=== PATIENT | male | born 1955 | race African-American/Black ===

== ENCOUNTER 2019-10-28 12:04 | Inpatient (IN) | payer BC, OTHER ==
--- NOTE | 2019-10-28 13:41 | BHS.RME ---
Substance Use & Tx History - Substance Use History Alcohol Substance amount: 4 nips Frequency of use: Daily Substance route: Oral Cannabis Frequency of use: Less than 3 times per week Substance route: Inhalation (ex: sniffing or snorting) - Last Treatment Date of last treatment: 10/28/2019 Where was last treatment: ER Physical/Psych/Mental Status - Behavior Eye Contact: Normal - Cooperativeness Cooperativeness: Cooperative - Thinking Thought Processes: Logical Thought content: Future oriented - Physical Health Problems Is patient presently having any pain?: Yes (r elbow s/p fall months ago ) Does patient presently have any injuries (include location): No Does patient currently have a fever: No CIWA Nausea/Vomitin Muscle Tremors: 5 Anxiety: 0-No Anxiety, at Ease Agitation: 1-Slight > Activity Paroxysmal Sweats: 2 Orientation: 0-Oriented Tacttile Disturbances: 1-Very Mild Itch/Numbness Auditory Disturbances: 2-Mild Harshness/Frighten Visual Disturbances: 2-Mild Sensitivity Headache: 0-None Present CIWA-Ar Total Score: 16
--- NOTE | 2019-10-28 13:47 | HP ---
CIWA Score Nausea/Vomitin Muscle Tremors: 4-Moderate,w/Arms Extend Anxiety: 0-No Anxiety, at Ease Agitation: 1-Slight > Activity Paroxysmal Sweats: 2 Orientation: 0-Oriented Tacttile Disturbances: 1-Very Mild Itch/Numbness Auditory Disturbances: 2-Mild Harshness/Frighten Visual Disturbances: 2-Mild Sensitivity Headache: 0-None Present CIWA-Ar Total Score: 15 - Admission Criteria OASAS Guidelines: Admission for Medically Managed Detox: Requires at least one of the followin. CIWA greater than 12 2. Seizures within the past 24 hours 3. Delirium tremens within the past 24 hours 4. Hallucinations within the past 24 hours 5. Acute intervention needed for co occurring medical disorder 6. Acute intervention needed for co occurring psychiatric disorder 7. Severe withdrawal that cannot be handled at a lower level of care (continued vomiting, continued diarrhea, abnormal vital signs) requiring intravenous medication and/or fluids 8. Admission ROS BHS - HPI Allergies/Adverse Reactions: Allergies Allergy/AdvReac Type Severity Reaction Status Date / Time No Known Allergies Allergy Verified 10/28/19 14:15 History of Present Illness: 63 y.o. male requesting detox from alcohol, s/p ER @ [facility] per pt dx w/ left kidney cyst has f/up US renal 11/14/2019 . ETOH 4 nips/day , reports tremors if not drinking , occasional blackouts, denies seizures , reports injuries to self , fall while intoxicated most recently several months ago fell and hit his right elbow , was supposed to start PT , closed due to COVID -19 . cannabis -occasional use tobacco - 1 ppd , requesting nrt w/ patch pmhx : htn NON- COMPLIANT W/ MEDS NORVASC 10 MG , CHRONIC BACK PAIN , FOOT PAIN HAS REGULAR PODIATRY APPT . PSYCH : DENIES PSHX : HEAD - CYST 2007 , FEET Exam Limitations: Clinical Condition - Review of Systems Constitutional: See HPI, Loss of Appetite EENT: reports: No Symptoms Reported Respiratory: reports: No Symptoms reported Cardiac: reports: No Symptoms Reported GI: reports: See HPI : reports: No Symptoms Reported Musculoskeletal: reports: See HPI, Back Pain, Joint Pain Integumentary: reports: No Symptoms Reported Neuro: reports: See HPI, Tremors Endocrine: reports: No Symptoms Reported Hematology: reports: No Symptoms Reported Psychiatric: reports: Orientated x3, Agitated, Anxious Patient History - Smoking Cessation Smoking history: Current every day smoker Have you smoked in the past 12 months: Yes Aproximately how many cigarettes per day: 20 Hx Chewing Tobacco Use: No Initiated information on smoking cessation: Yes 'Breaking Loose' booklet given: 10/28/19 - Substances abused Alcohol Substance route: Oral Frequency: Daily Amount used: 6 nips of vodka Age of first use: 16 Date of last use: 10/27/19 Admission Physical Exam S - Physical General Appearance: Yes: Mild Distress, Moderate Distress, Tremorous, Irritable, Anxious HEENTM: Yes: EOMI, Hearing grossly Normal, Normocephalic, Normal Voice Respiratory: Yes: Chest Non-Tender, Lungs Clear, Normal Breath Sounds, No Respiratory Distress, No Accessory Muscle Use Neck: Yes: No masses,lesions,Nodules, Trachea in good position Cardiology: Yes: Regular Rhythm, Regular Rate, S1, S2, Tachycardia Abdominal: Yes: Non Tender, Soft Musculoskeletal: Yes: Gait Steady Extremities: Yes: Normal Range of Motion, Non-Tender, Tremors, Swelling (RIGHT ELBOW EDEMA , TENDER TO PALPATION OLECRANON, NO DEFORMITIES PER PT NO FRX , WAS SENT TO PT.) Neurological: Yes: Fully Oriented, Alert, Motor Strength 5/5, Normal Mood/Affect Integumentary: Yes: Warm - Diagnostic (1) Alcohol dependence Current Visit: Yes Status: Acute Qualifiers: Substance use status: in withdrawal (2) Cannabis use disorder, mild, abuse Current Visit: Yes Status: Chronic (3) Nicotine dependence Current Visit: Yes Status: Chronic Qualifiers: Nicotine product type: cigarettes Inpatient Rehab Admission - Rehab Decision to Admit Inpatient rehab admission?: No
[2019-10-28] MEDS ORDERED: IBUPROFEN 400 MG TABLET (FP) PO PRN (14:16)
[2019-10-28] MEDS ORDERED: ACETAMINOPHEN 325 MG TABLET (FP) PO PRN ×2 (14:16)
[2019-10-28] MEDS ORDERED: MAGNESIUM HYDROX 2400MG/30ML ORAL SUSPENSION 30 ML CUP PO PRN (14:16)
[2019-10-28] MEDS ORDERED: MAG HYDROX/AL HYDROX/SIMETH 30 ML UNIT-DOSE CUP PO PRN (14:16)
[2019-10-28] MEDS ORDERED: BISMUTH SUBSALICYLATE 262 MG/15 ML BTL PO PRN (14:16)
[2019-10-28] MEDS ORDERED: MENTHOL/PHENOL 1 EACH UD MM PRN (14:16)
[2019-10-28] MEDS ORDERED: ONDANSETRON *ODT* 4 MG TABLET SL PRN (14:16)
[2019-10-28] MEDS ORDERED: METHOCARBAMOL 500 MG TABLET PO PRN (14:16)
[2019-10-28] MEDS ORDERED: MAGNESIUM CITRATE 300 ML BOTTLE PO PRN (14:16)
[2019-10-28 14:22] VITALS: BMI 22.0
[2019-10-28] MEDS ORDERED: chlordiazePOXIDE HCL 25 MG CAPSULE PO PRN (14:31)
[2019-10-28] MEDS ORDERED: chlordiazePOXIDE HCL 25 MG CAPSULE PO ONE (14:31)
[2019-10-28] MEDS: hydrOXYzine PAMOATE 25 MG CAPSULE (FP) PO PRN ×2 (15:05→22:16)
[2019-10-28] MEDS: amLODIPine BESYLATE 10 MG TABLET (FP) PO SCH (15:05)
[2019-10-28] MEDS: NICOTINE 7 MG/24 HOURS TOPICAL PATCH TD SCH (15:10)
[2019-10-28] MEDS: chlordiazePOXIDE HCL 25 MG CAPSULE PO SCH ×2 (18:06→22:16)
[2019-10-28] MEDS: THIAMINE HCL 100 MG TABLET (FP) PO SCH (22:16)
[2019-10-28] MEDS: MELATONIN 5 MG TABLETS PO PRN (22:17)
[2019-10-29] MEDS: chlordiazePOXIDE HCL 25 MG CAPSULE PO SCH ×4 (06:50→22:15)
--- NOTE | 2019-10-29 09:45 | PN ---
[facility] CIWA - CIWA Score Nausea/Vomitin-No Nausea/No Vomiting Muscle Tremors: 2 Anxiety: 3 Agitation: 0-Normal Activity Paroxysmal Sweats: 3 Orientation: 0-Oriented Tacttile Disturbances: 1-Very Mild Itch/Numbness Auditory Disturbances: 0-None Visual Disturbances: 0-None Headache: 2-Mild CIWA-Ar Total Score: 11 S Progress Note (SOAP) Subjective: c/o sweats, anxiety, shakes, and headache. Objective: 10/29/19 09:44 Vital Signs 10/29/19 10/29/19 06:08 08:40 Temperature 97.0 F L 97.3 F L Pulse Rate 79 77 Respiratory 18 18 Rate Blood Pressure 163/109 H 137/88 Laboratory Last Values WBC 3.9 K/mm3 (4.0-10.0) L 10/29/19 07:30 RBC 4.13 M/mm3 (4.00-5.60) 10/29/19 07:30 Hgb 13.5 GM/dL (11.7-16.9) 10/29/19 07:30 Hct 40.6 % (35.4-49) 10/29/19 07:30 MCV 98.4 fl (80-96) H 10/29/19 07:30 MCH 32.7 pg (25.7-33.7) 10/29/19 07:30 MCHC 33.2 g/dl (32.0-35.9) 10/29/19 07:30 RDW 16.1 % (11.9-15.9) H 10/29/19 07:30 Plt Count 300 K/MM3 (134-434) 10/29/19 07:30 MPV 8.5 fl (7.5-11.1) 10/29/19 07:30 Sodium 137 mmol/L (136-145) 10/29/19 07:30 Potassium 3.6 mmol/L (3.5-5.1) 10/29/19 07:30 Chloride 104 mmol/L (98-107) 10/29/19 07:30 Carbon Dioxide 30 mmol/L (21-32) 10/29/19 07:30 Anion Gap 3 MMOL/L (8-16) L 10/29/19 07:30 BUN 12.4 mg/dL (7-18) 10/29/19 07:30 Creatinine 1.1 mg/dL (0.55-1.3) 10/29/19 07:30 Est GFR (CKD-EPI)AfAm 83.53 10/29/19 07:30 Est GFR (CKD-EPI)NonAf 72.07 10/29/19 07:30 Random Glucose 89 mg/dL (74-106) 10/29/19 07:30 Calcium 9.3 mg/dL (8.5-10.1) 10/29/19 07:30 Total Bilirubin 1.2 mg/dL (0.2-1) H 10/29/19 07:30 AST 33 U/L (15-37) 10/29/19 07:30 ALT 67 U/L (13-61) H 10/29/19 07:30 Alkaline Phosphatase 68 U/L (45-117) 10/29/19 07:30 Total Protein 6.6 g/dl (6.4-8.2) 10/29/19 07:30 Albumin 3.6 g/dl (3.4-5.0) 10/29/19 07:30 Syphilis Serology Non-reactive (NONREACTIVE) 10/29/19 07:30 Labs noted. Assessment: 10/29/19 09:45 AOX3, in no acute respiratory distress. Full ROM, ambulating in the unit. Withdrawal symptoms. Covid-19 test result pending. 10/29/19 13:28 Plan: continue detox.
[2019-10-29 10:06] LABS: HEMATOCRIT 40.6 % (35.4-49); HEMOGLOBIN 13.5 GM/dL (11.7-16.9); MCH 32.7 pg (25.7-33.7); MCHC 33.2 g/dl (32.0-35.9); MEAN CELL VOLUME 98.4 fl (80-96); MEAN PLT VOLUME 8.5 fl (7.5-11.1); PLATELET COUNT 300 K/MM3 (134-434); RBC 4.13 M/mm3 (4.00-5.60); RDW 16.1 % (11.9-15.9); WHITE BLOOD COUNT 3.9 K/mm3 (4.0-10.0)
[2019-10-29 10:13] LABS: ALBUMIN 3.6 g/dl (3.4-5.0); BILIRUBIN,TOTAL 1.2 mg/dL (0.2-1); BLOOD UREA NITROGEN 12.4 mg/dL (7-18); CALCIUM 9.3 mg/dL (8.5-10.1); CREATININE 1.1 mg/dL (0.55-1.3); POTASSIUM 3.6 mmol/L (3.5-5.1); TOT PROT 6.6 g/dl (6.4-8.2)
[2019-10-29] MEDS: NICOTINE 7 MG/24 HOURS TOPICAL PATCH TD SCH (10:31)
[2019-10-29] MEDS: amLODIPine BESYLATE 10 MG TABLET (FP) PO SCH (10:32)
[2019-10-29] MEDS: PRENATAL VITAMINS W/ FOLIC ACID TABLET (FP) PO SCH (10:32)
[2019-10-29] MEDS: MELATONIN 5 MG TABLETS PO PRN (22:15)
[2019-10-29] MEDS: THIAMINE HCL 100 MG TABLET (FP) PO SCH (22:15)
[2019-10-29] MEDS: hydrOXYzine PAMOATE 25 MG CAPSULE (FP) PO PRN (22:15)
[2019-10-30] MEDS: chlordiazePOXIDE HCL 25 MG CAPSULE PO SCH ×2 (06:58→10:30)
[2019-10-30] MEDS: NICOTINE 7 MG/24 HOURS TOPICAL PATCH TD SCH (10:30)
[2019-10-30] MEDS: PRENATAL VITAMINS W/ FOLIC ACID TABLET (FP) PO SCH (10:30)
[2019-10-30] MEDS: amLODIPine BESYLATE 10 MG TABLET (FP) PO SCH (10:30)
--- NOTE | 2019-10-30 14:01 | PN ---
S CIWA - CIWA Score Nausea/Vomitin-Mild Nausea/No Vomiting Muscle Tremors: 2 Anxiety: 2 Agitation: 1-Slight > Activity Paroxysmal Sweats: 1-Minimal Palms Moist Orientation: 0-Oriented Tacttile Disturbances: 0-None Auditory Disturbances: 0-None Visual Disturbances: 2-Mild Sensitivity Headache: 0-None Present CIWA-Ar Total Score: 9 BHS Progress Note (SOAP) Subjective: 63 years old male admitted on 10/28/19 for alcohol withdrawal sx management treating with librium detox regiment reports that the medication makes him sleepy adjusts librium dosage to meet the need of the patient Objective: 10/30/19 14:09 Vital Signs - 24 hr 10/29/19 10/29/19 10/30/19 16:48 20:45 00:30 Temperature 97.3 F L 97.1 F L Pulse Rate 90 78 Respiratory 18 18 18 Rate Blood Pressure 136/81 131/84 O2 Sat by Pulse 96 Oximetry (%) 10/30/19 10/30/19 10/30/19 03:30 06:20 08:32 Temperature 97.5 F L 97.3 F L Pulse Rate 76 88 Respiratory 18 18 18 Rate Blood Pressure 141/98 127/85 O2 Sat by Pulse Oximetry (%) 10/30/19 13:15 Temperature 97.3 F L Pulse Rate 93 H Respiratory 18 Rate Blood Pressure 121/83 O2 Sat by Pulse 98 Oximetry (%) Laboratory Tests 10/29/19 10/29/19 10/29/19 07:30 07:30 07:30 WBC 3.9 L RBC 4.13 Hgb 13.5 Hct 40.6 MCV 98.4 H MCH 32.7 MCHC 33.2 RDW 16.1 H Plt Count 300 MPV 8.5 Sodium 137 Potassium 3.6 Chloride 104 Carbon Dioxide 30 Anion Gap 3 L BUN 12.4 Creatinine 1.1 Est GFR (CKD-EPI)AfAm 83.53 Est GFR (CKD-EPI)NonAf 72.07 Random Glucose 89 Calcium 9.3 Total Bilirubin 1.2 H AST 33 ALT 67 H Alkaline Phosphatase 68 Total Protein 6.6 Albumin 3.6 Syphilis Serology Non-reactive labn oted Assessment: 10/30/19 14:10 alcohol withdrawal Plan: librium regiment
[2019-10-30] MEDS ORDERED: chlordiazePOXIDE HCL 25 MG CAPSULE PO SCH (17:00)
[2019-10-30] MEDS: chlordiazePOXIDE HCL 10 MG CAPSULE PO SCH ×2 (17:36→22:13)
[2019-10-30] MEDS: THIAMINE HCL 100 MG TABLET (FP) PO SCH (22:12)
[2019-10-30] MEDS: MELATONIN 5 MG TABLETS PO PRN (22:12)
[2019-10-31] MEDS ORDERED: chlordiazePOXIDE HCL 10 MG CAPSULE PO PRN
[2019-10-31] MEDS ORDERED: chlordiazePOXIDE HCL 10 MG CAPSULE PO SCH ×2 (05:00)
--- NOTE | 2019-10-31 08:54 | PN ---
[facility] CIWA - CIWA Score Nausea/Vomitin-No Nausea/No Vomiting Muscle Tremors: None Anxiety: 1-Mildly Anxious ("anxious to go home") Agitation: 0-Normal Activity Paroxysmal Sweats: No Perspiration Orientation: 0-Oriented Tacttile Disturbances: 0-None Auditory Disturbances: 0-None Visual Disturbances: 0-None Headache: 0-None Present CIWA-Ar Total Score: 1 BHS Progress Note (SOAP) Subjective: pt reports decreased withdrawal sx. Wants to d/c today. States " i'm just anxious to get home today and that's it". Librium 5 mg today but pt declined it. Objective: 10/31/19 11:55 Vital Signs - 24 hr 10/30/19 10/30/19 10/30/19 13:15 16:39 20:33 Temperature 97.3 F L 98.0 F 97.5 F L Pulse Rate 93 H 89 88 Respiratory 18 18 16 Rate Blood Pressure 121/83 131/81 127/83 O2 Sat by Pulse 98 95 Oximetry (%) 10/31/19 10/31/19 10/31/19 00:30 03:30 06:31 Temperature 97.4 F L Pulse Rate 63 Respiratory 20 18 18 Rate Blood Pressure 133/81 O2 Sat by Pulse 97 Oximetry (%) 10/31/19 09:00 Temperature 97.9 F Pulse Rate 88 Respiratory 18 Rate Blood Pressure 123/85 O2 Sat by Pulse 95 Oximetry (%) Laboratory Tests 10/28/19 10/29/19 10/29/19 Unknown 07:30 07:30 WBC 3.9 L RBC 4.13 Hgb 13.5 Hct 40.6 MCV 98.4 H MCH 32.7 MCHC 33.2 RDW 16.1 H Plt Count 300 MPV 8.5 Sodium Potassium Chloride Carbon Dioxide Anion Gap BUN Creatinine Est GFR (CKD-EPI)AfAm Est GFR (CKD-EPI)NonAf Random Glucose Calcium Total Bilirubin AST ALT Alkaline Phosphatase Total Protein Albumin Syphilis Serology Non-reactive COVID-19 (SINDI) Not detected 10/29/19 07:30 WBC RBC Hgb Hct MCV MCH MCHC RDW Plt Count MPV Sodium 137 Potassium 3.6 Chloride 104 Carbon Dioxide 30 Anion Gap 3 L BUN 12.4 Creatinine 1.1 Est GFR (CKD-EPI)AfAm 83.53 Est GFR (CKD-EPI)NonAf 72.07 Random Glucose 89 Calcium 9.3 Total Bilirubin 1.2 H AST 33 ALT 67 H Alkaline Phosphatase 68 Total Protein 6.6 Albumin 3.6 Syphilis Serology COVID-19 (SINDI) Assessment: 10/31/19 11:56 medically stable Plan: may discharge pt today to aftercare referral @ [facility] on [address] [place], [place]. Pt reports he has a PCP at [facility] on [address] [place], [place]. pt states he has own meds at home. D/C pt today
--- NOTE | 2019-10-31 09:03 | DS ---
[facility] Detox Discharge Summary Admission Date: 10/28/19 Discharge Date: 10/31/19 - History Present History: Alcohol Dependence, Cannabis Dependence Pertinent Past History: Hypertension - Physical Exam Results Vital Signs: Vital Signs Temperature 97.4 F L 10/31/19 06:31 Pulse Rate 63 10/31/19 06:31 Respiratory Rate 18 10/31/19 06:31 Blood Pressure 133/81 10/31/19 06:31 O2 Sat by Pulse Oximetry (%) 97 10/31/19 06:31 Alert o x 3 nad oob ambulating with steady gait cardiac;s1 s2,rrr lungs:ctab abdomen:soft,+bs,nt,nd extremities:no edema,skin intact. Pertinent Admission Physical Exam Findings: Laboratory Tests 10/28/19 10/29/19 10/29/19 Unknown 07:30 07:30 WBC 3.9 L RBC 4.13 Hgb 13.5 Hct 40.6 MCV 98.4 H MCH 32.7 MCHC 33.2 RDW 16.1 H Plt Count 300 MPV 8.5 Sodium Potassium Chloride Carbon Dioxide Anion Gap BUN Creatinine Est GFR (CKD-EPI)AfAm Est GFR (CKD-EPI)NonAf Random Glucose Calcium Total Bilirubin AST ALT Alkaline Phosphatase Total Protein Albumin Syphilis Serology Non-reactive COVID-19 (SINDI) Not detected 10/29/19 07:30 WBC RBC Hgb Hct MCV MCH MCHC RDW Plt Count MPV Sodium 137 Potassium 3.6 Chloride 104 Carbon Dioxide 30 Anion Gap 3 L BUN 12.4 Creatinine 1.1 Est GFR (CKD-EPI)AfAm 83.53 Est GFR (CKD-EPI)NonAf 72.07 Random Glucose 89 Calcium 9.3 Total Bilirubin 1.2 H AST 33 ALT 67 H Alkaline Phosphatase 68 Total Protein 6.6 Albumin 3.6 Syphilis Serology COVID-19 (SINDI) w/s - Treatment Hospital Course: Detox Protocol Followed, Detoxed Safely, Responded well, Discharged Condition Good, Rehab Referral Accepted Patient has Accepted a Rehab Referral to: [facility] OPD - Medication Discharge Medications: Ambulatory Orders Amlodipine Besylate [Norvasc -] 10 mg PO DAILY 10/28/19 - Diagnosis (1) Hypertension Status: Chronic Qualifiers: Hypertension type: essential hypertension Qualified Code(s): I10 - Essential (primary) hypertension (2) Alcohol dependence Status: Acute Qualifiers: Substance use status: in withdrawal (3) Cannabis use disorder, mild, abuse Status: Acute (4) Nicotine dependence Status: Acute Qualifiers: Nicotine product type: cigarettes Substance use status: in withdrawal Qualified Code(s): F17.213 - Nicotine dependence, cigarettes, with withdrawal - AMA Did Patient Leave Against Medical Advice: No
[2019-10-31] MEDS: amLODIPine BESYLATE 10 MG TABLET (FP) PO SCH (09:48)
[2019-10-31] MEDS: PRENATAL VITAMINS W/ FOLIC ACID TABLET (FP) PO SCH (09:49)
[2019-10-31 10:20] VITALS: BP 123/85; PULSE 88; TEMP 97.9
[2019-11-01] MEDS ORDERED: chlordiazePOXIDE HCL 10 MG CAPSULE PO SCH ×2 (05:00)
[2019-11-02] MEDS ORDERED: chlordiazePOXIDE HCL 10 MG CAPSULE PO ONE ×2 (05:00)
== END 2019-10-31 10:05 | disposition home or self-care (01) | DRG 897 ==
LOC: YASAS 12:04 → Y5N DETOX 14:15
PROVIDERS: ADMIT Allergy & Immunology; ATTEND Allergy & Immunology
PROC: HZ2ZZZZ Detoxification Services for Substance Abuse Treatment (ICD-10-PCS; principal; 2019-10-28)
DX: F10.230 Alcohol dependence with withdrawal, uncomplicated (principal); F12.10 Cannabis abuse, uncomplicated; F17.213 Nicotine dependence, cigarettes, with withdrawal; I10 Essential (primary) hypertension; M54.89 Other dorsalgia; G89.29 Other chronic pain; M25.521 Pain in right elbow; M25.421 Effusion, right elbow; W19.XXXA Unspecified fall, initial encounter; Y93.89 Activity, other specified; Y92.89 Other specified places as the place of occurrence of the external cause; Y99.8 Other external cause status
CPT/HCPCS: 36415; 80053; 85027; 86780; U0003

== ENCOUNTER 2020-01-28 20:50 | Inpatient (IN) | payer BC, OTHER ==
--- OUTSIDE RECORDS SUMMARY | 2020-01-28 20:54 | XMS ---
:1955 Author Organization [facility] Support Name Relationship Address Phone UE Unavailable Unavailable Unavailable NOLVIA MACKAY [address] [place] [address] Nolvia Paulson Unavailable [address] [place] [address] Re-disclosure Warning The records that you are about to access may contain information from federally- assisted alcohol or drug abuse programs. If such information is present, then the following federally mandated warning applies: This information has been disclosed to you from records protected by federal confidentiality rules (42 CFR part 2). The federal rules prohibit you from making any further disclosure of this information unless further disclosure is expressly permitted by the written consent of the person to whom it pertains or as otherwise permitted by 42 CFR part 2. A general authorization for the release of medical or other information is NOT sufficient for this purpose. The Federal rules restrict any use of the information to criminally investigate or prosecute any alcohol or drug abuse patient.The records that you are about to access may contain highly sensitive health information, the redisclosure of which is protected by Article 27-F of the [facility] Public Health law. If you continue you may haveaccess to information: Regarding HIV / AIDS; Provided by facilities licensed or operated by the [facility] Office of Mental Health; or Provided by the [facility] Office for People With Developmental Disabilities. If such information is present, then the following [facility] mandated warning applies: This information has been disclosed to you from confidential records which are protected by state law. State law prohibits you from making any further disclosure of this information without the specific written consent of the person to whom it pertains, or as otherwise permitted by law. Any unauthorized further disclosure in violation of state law may result in a fine or snf sentence or both. A general authorization for the release of medical or other information is NOT sufficient authorization for further disclosure. Insurance Providers Payer name Policy type Policy ID Covered Covered alliance party's Policy P danial / Coverage alliance party ID relationship to [employer] Inf ormation type balderrama [employer] MEDICARE [id number] SP [id number] BLUE CROSS [id number] SP [id number] SENIOR PLAN 45 MEDICAID [id number] SP [id number] BLUE CROSS [id number] SP [id number] SENIOR PLAN 9 Results ID Date Data Source [id number] 10/28/2019 12:00:00 AM EDT [facility] Name Value Range Interpretation Description Data Sup porting Code Source(s) Document(s ) SARS [facility] CORONAVIRUS 2 RNA This lab was ordered by Teachey Lisa Fuentes ct Bill Inter and reported by [facility]. Procedure
[2020-01-28 22:14] VITALS: BMI 25.7
--- NOTE | 2020-01-28 22:17 | HP ---
CIWA Score Nausea/Vomitin-Mild Nausea/No Vomiting Muscle Tremors: 5 Anxiety: 4-Mod. Anxious/Guarded Agitation: 4-Moderately Restless Paroxysmal Sweats: 3 Orientation: 0-Oriented Tacttile Disturbances: 0-None Auditory Disturbances: 0-None Visual Disturbances: 0-None Headache: 0-None Present CIWA-Ar Total Score: 17 - Admission Criteria OASAS Guidelines: Admission for Medically Managed Detox: Requires at least one of the followin. CIWA greater than 12 2. Seizures within the past 24 hours 3. Delirium tremens within the past 24 hours 4. Hallucinations within the past 24 hours 5. Acute intervention needed for co occurring medical disorder 6. Acute intervention needed for co occurring psychiatric disorder 7. Severe withdrawal that cannot be handled at a lower level of care (continued vomiting, continued diarrhea, abnormal vital signs) requiring intravenous medication and/or fluids 8. Patient presents the following: CIWA greater than 12 Admission Criteria Met: Admission criteria met Admitting History and Physical - Smoking History Smoking history: Current every day smoker Have you smoked in the past 12 months: Yes Aproximately how many cigarettes per day: 20 Admission ROS [facility] Chief Complaint: c/o withdrawal sx's Allergies/Adverse Reactions: Allergies Allergy/AdvReac Type Severity Reaction Status Date / Time No Known Allergies Allergy Verified 10/28/19 14:15 History of Present Illness: HERE FOR ALCOHOL DETOX. SELF REFERRED. CLIENT IS KNOWN TO PROGRAM. LAST HERE 10/2019 SIGNED OUT AMA HE WAS NOT READY. HE REPORTS HE HAS BEEN DRINKING ALCOHOL DAILY SINCE. 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 DENIES SEIZURE D/O. HE ALSO ABUSES CANNABIS. DENIES ANY SOBRIETY IN THE PAST 12 MONTHS. LIVES WITH FAMILY, UNEMPLOYED, DENIES LEGALS Exam Limitations: Physical Impairment (AMBULATES W/ CANE) - Ebola screening Have you traveled outside of the country in the last 21 days: No Have you had contact with anyone from an Ebola affected area: No Have you been sick,other than usual withdrawal symptoms: No Do you have a fever: No - Review of Systems Constitutional: Chills, Loss of Appetite, Night Sweats, Changes in sleep, Unintentional Wgt. Loss EENT: reports: Dental Problems (MISSING TEETH), Other (WATERY EYES) Respiratory: reports: No Symptoms reported Cardiac: reports: No Symptoms Reported GI: reports: Nausea, Poor Appetite, Poor Fluid Intake : reports: No Symptoms Reported Musculoskeletal: reports: Back Pain (CHRONIC), Joint Pain (R KNEE), Other (AMBULATES W/ CANE HX/O FALLS) Integumentary: reports: No Symptoms Reported Neuro: reports: No Symptoms reported Endocrine: reports: No Symptoms Reported Hematology: reports: Other (RECTAL BLEEDING) Psychiatric: reports: Orientated x3, Anxious, Depressed (DENIES SI/HI/AVH) Other Systems: Reviewed and Negative Patient History - Patient Medical History Hx Anemia: No Hx Asthma: No Hx Chronic Obstructive Pulmonary Disease (COPD): No Hx Cancer: No Hx Cardiac Disorders: No Hx Hypertension: Yes Hx Hypercholesterolemia: No Hx Pacemaker: No HX Cerebrovascular Accident: No Hx Seizures: No Hx Dementia: No Hx Diabetes: No Hx Gastrointestinal Disorders: Yes (RECTAL BLEEDING) Hx Genitourinary Disorders: No Hx Sexually Transmitted Disorders: No Hx Renal Disease (ESRD): No Hx Thyroid Disease: No Hx Human Immunodeficiency Virus (HIV): No Hx Hepatitis C: No Hx Depression: No Hx Suicide Attempt: No Hx Bipolar Disorder: No Hx Schizophrenia: No Other Medical History: DENIES - Patient Surgical History Past Surgical History: No Hx Neurologic Surgery: No Hx Cataract Extraction: No Hx Cardiac Surgery: No Hx Lung Surgery: No Hx Breast Surgery: No Hx Orthopedic Surgery: Yes (hip sx. 2007) Anesthesia Reaction: No - PPD History Previous Implant?: Yes Documented Results: Positive w/o proof Implanted On [facility] Admission?: No PPD to be Administered?: No - Smoking Cessation Smoking history: Current every day smoker Have you smoked in the past 12 months: Yes Aproximately how many cigarettes per day: 20 Cigars Per Day: 0 Hx Chewing Tobacco Use: No Initiated information on smoking cessation: Yes 'Breaking Loose' booklet given: 01/28/20 - Substance & Tx. History Hx Alcohol Use: Yes Hx Substance Use: Yes Substance Use Type: Alcohol, Marijuana Hx Substance Use Treatment: Yes ([facility]) - Substances abused Alcohol Other (specify): VODKA Substance route: Oral Frequency: Daily Amount used: 1 QUART Age of first use: 17 Date of last use: 01/28/20 Marijuana/Hashish Substance route: Smoking Frequency: 1-3 times last 30 days Amount used: 2 DRAGS Age of first use: 17 Date of last use: 01/27/20 Admission Physical Exam [facility] - Physical General Appearance: Yes: Moderate Distress, Tremorous, Sweating, Anxious HEENTM: Yes: EOMI, Normocephalic, Normal Voice, STEPH, Pharynx Normal, Other (POOR DENTITION) Respiratory: Yes: Chest Non-Tender, Lungs Clear, Normal Breath Sounds, No Respiratory Distress, No Accessory Muscle Use Neck: Yes: No masses,lesions,Nodules, Supple, Trachea in good position Breast: Yes: Breasts Symetrical Cardiology: Yes: Regular Rhythm, S1, S2, Tachycardia Abdominal: Yes: Normal Bowel Sounds, Non Tender, Soft Genitourinary: Yes: Within Normal Limits Back: Yes: Normal Inspection Musculoskeletal: Yes: full range of Motion, Gait Steady Extremities: Yes: Normal Capillary Refill, Normal Range of Motion, Non-Tender, Tremors Neurological: Yes: Fully Oriented, Alert, Motor Strength 5/5, Depressed Affect Integumentary: Yes: Cold, Clammy Lymphatic: Yes: Within Normal Limits - Diagnostic (1) Alcohol dependence with withdrawal, uncomplicated Current Visit: Yes Status: Acute (2) Cannabis use disorder, mild, abuse Current Visit: Yes Status: Acute (3) Nicotine dependence Current Visit: Yes Status: Chronic Qualifiers: Nicotine product type: cigarettes Substance use status: in withdrawal Qualified Code(s): F17.213 - Nicotine dependence, cigarettes, with withdrawal (4) Hypertension Current Visit: Yes Status: Chronic Qualifiers: Hypertension type: essential hypertension Qualified Code(s): I10 - Essential (primary) hypertension (5) Ambulates with cane Current Visit: Yes Status: Chronic (6) Risk for falls Current Visit: Yes Status: Chronic Cleared for Admission [facility] - Detox or Rehab [facility] Level of Care: Medically Managed Detox Regimen/Protocol: Ativan Claeared for Rehab Admission: No Breathalyzer - Breathalyzer Breathalyzer: 0 Urine Drug Screen - Test Device Lot number: [id number] Expiration date: 12/25/20 - Control Is test valid?: Yes - Results Drug screen NEGATIVE: No Urine drug screen results: THC-Marijuana Inpatient Rehab Admission - Rehab Decision to Admit Inpatient rehab admission?: No
[2020-01-28] MEDS ORDERED: MAG HYDROX/AL HYDROX/SIMETH 30 ML UNIT-DOSE CUP PO PRN (22:27)
[2020-01-28] MEDS ORDERED: BISMUTH SUBSALICYLATE 524 MG/30 ML UD PO PRN (22:27)
[2020-01-28] MEDS ORDERED: MAGNESIUM CITRATE 300 ML BOTTLE PO PRN (22:27)
[2020-01-28] MEDS ORDERED: guaiFENesin 200 MG/10 ML 10 ML UNIT-DOSE CUPS PO PRN (22:27)
[2020-01-28] MEDS ORDERED: MAGNESIUM HYDROX 2400MG/30ML ORAL SUSPENSION 30 ML CUP PO PRN (22:27)
[2020-01-28] MEDS ORDERED: P-EPHED 60MG/TRIPROLIDI 2.5MG TABLET PO PRN (22:27)
[2020-01-28] MEDS ORDERED: ACETAMINOPHEN 325 MG TABLET (FP) PO PRN ×2 (22:27)
[2020-01-28] MEDS ORDERED: ONDANSETRON *ODT* 4 MG TABLET SL PRN (22:27)
[2020-01-28] MEDS ORDERED: DICYCLOMINE HCL 10 MG CAPSULE PO PRN (22:27)
[2020-01-28] MEDS ORDERED: METHOCARBAMOL 500 MG TABLET PO PRN (22:27)
[2020-01-28] MEDS ORDERED: LORazepam 1 MG TABLET PO PRN (22:27)
[2020-01-28] MEDS ORDERED: IBUPROFEN 400 MG TABLET (FP) PO PRN (22:27)
[2020-01-28] MEDS ORDERED: NICOTINE POLACRILEX 2 MG GUM BUC PRN (22:27)
[2020-01-28] MEDS ORDERED: MENTHOL/PHENOL 1 EACH UD MM PRN (22:27)
--- OUTSIDE RECORDS SUMMARY | 2020-01-28 23:24 | XMS ---
:1955 Author Organization [facility] Support Name Relationship Address Phone UE Unavailable Unavailable Unavailable NOLVIA MACKAY [address] [place] [address] Nolvia Paulson Unavailable [address] [place] [address] Re-disclosure Warning The records that you are [...] is protected by Article 27-F of the [facility] Public Health law. If you continue you may haveaccess to information: Regarding HIV / AIDS; Provided by facilities licensed or operated by the [facility] Office of Mental Health; or Provided by the [facility] Office for People With Developmental Disabilities. If such information is present, then the following [facility] mandated warning applies: This information [...] law may result in a fine or shelter sentence or both. A general authorization for the release of medical or other information is NOT sufficient authorization for further disclosure. Insurance Providers Payer name Policy type Policy ID Covered Covered democrat's Policy P danial / Coverage democrat ID relationship to Balderrama Inf ormation type balderrama MAR[employer] MEDICARE [id number] SP [id number] BLUE CROSS [id number] SP [id number] SENIOR PLAN 45 MEDICAID [id number] SP [id number] BLUE CROSS [id number] SP [id number] SENIOR PLAN 9 Results ID Date Data Source [id number] 10/28/2019 12:00:00 AM EDT [facility] Name Value Range Interpretation Description Data Sup porting Code Source(s) Document(s ) SARS [facility] CORONAVIRUS 2 RNA This lab was ordered by [place] Lisa Fuentes ct [facility] and reported by [facility]. Procedure
[2020-01-29] MEDS: LORazepam 2 MG TABLET PO SCH ×5 (00:56→22:33)
[2020-01-29] MEDS ORDERED: cloNIDine HCL 0.1 MG TABLET PO ONE ×2 (07:18→21:06)
--- NOTE | 2020-01-29 07:20 | PN ---
[facility] Progress Note Note: CLONIDINE 0.1 MG PO X 1 DOSE Vital Signs 01/29/20 01/29/20 01/29/20 00:10 02:44 06:18 Temperature 97.1 F L 97.3 F L 97.3 F L Pulse Rate 86 77 79 Respiratory 18 18 16 Rate Blood Pressure 198/107 H 166/96 170/102 H O2 Sat by Pulse 100 99 98 Oximetry (%)
[2020-01-29] MEDS ORDERED: amLODIPine BESYLATE 10 MG TABLET (FP) PO SCH (10:00)
[2020-01-29] MEDS ORDERED: NICOTINE 21 MG/24 HOURS TOPICAL PATCH TD SCH (10:00)
[2020-01-29] MEDS ORDERED: PRENATAL VITAMINS W/ FOLIC ACID TABLET (FP) PO SCH (10:00)
--- NOTE | 2020-01-29 10:23 | PN ---
S CIWA - CIWA Score Nausea/Vomitin-Mild Nausea/No Vomiting Muscle Tremors: 3 Anxiety: 3 Agitation: 0-Normal Activity Paroxysmal Sweats: 1-Minimal Palms Moist Orientation: 1-Uncertain about Date (date of week) Tacttile Disturbances: 0-None Auditory Disturbances: 0-None Visual Disturbances: 1-Very Mild Sensitivity Headache: 2-Mild CIWA-Ar Total Score: 12 [facility] Progress Note (SOAP) Subjective: 64 years old male was admitted on 01/28/20 for alcohol withdrawal sx management treating with ativan detox regiment ate breakfast in room tolerated well feels tired prefers to resting in bed Objective: 01/29/20 10:23 Vital Signs - 24 hr 01/28/20 01/29/20 01/29/20 22:11 00:10 02:44 Temperature 97.7 F 97.1 F L 97.3 F L Pulse Rate 84 86 77 Respiratory 18 18 18 Rate Blood Pressure 170/108 H 198/107 H 166/96 O2 Sat by Pulse 100 99 Oximetry (%) 01/29/20 01/29/20 01/29/20 06:18 07:24 09:00 Temperature 97.3 F L 97.6 F 97.8 F Pulse Rate 79 80 93 H Respiratory 16 18 20 Rate Blood Pressure 170/102 H 147/95 151/98 O2 Sat by Pulse 98 99 Oximetry (%) 01/29/20 10:24 lab pending Assessment: 01/29/20 10:24 alcohol withdrawal Plan: ativan regiment
[2020-01-29 10:48] LABS: HEMATOCRIT 36.9 % (35.4-49); HEMOGLOBIN 12.5 GM/dL (11.7-16.9); MCH 34.4 pg (25.7-33.7); MCHC 33.9 g/dl (32.0-35.9); MEAN CELL VOLUME 101.7 fl (80-96); MEAN PLT VOLUME 8.9 fl (7.5-11.1); PLATELET COUNT 236 K/MM3 (134-434); RBC 3.63 M/mm3 (4.00-5.60); RDW 14.4 % (11.9-15.9); WHITE BLOOD COUNT 4.8 K/mm3 (4.0-10.0)
[2020-01-29 11:05] LABS: ALBUMIN 3.5 g/dl (3.4-5.0); BLOOD UREA NITROGEN 13.6 mg/dL (7-18); CALCIUM 8.8 mg/dL (8.5-10.1); POTASSIUM 3.7 mmol/L (3.5-5.1); TOT PROT 6.5 g/dl (6.4-8.2)
[2020-01-29] MEDS ORDERED: FLU VACCINE (FLULAVAL) PF 60 MCG/0.5 ML SYRINGE 2020-2021 IM ONE (12:00)
[2020-01-29] MEDS ORDERED: PNEUMOC 13-VAL CONJ-DIP CRM/PF 0.5 ML DISP.SYRIN IM ONE (12:00)
--- NOTE | 2020-01-29 14:13 | CONSULT ---
[facility] Psychiatric Consult - Data Date of interview: 01/29/20 Admission source: Self-eferred Identifying data: Mr Chandler is a 64 years old Black male, unemployed, living with family seeking detox treatment for alcohol and cannabis Substance Abuse History: Reports history of alcohol and cannabis use. Refer to addiction counselor's summary for further information Medical History: Significant for hypertension, PPD+, history of rectal bleeding and orthosurgery hip in 2006. Smokes cigarettes 1 ppd Psychiatric History: Patient is known for one previous admission to this facility. He was aprroached at bedside for psychiatric interview. Told policy writer typist:" You want to see me for what. I did not ask to see psychiatrist"
[2020-01-29] MEDS ORDERED: LORazepam 2 MG TABLET ONE ×2 (18:07→20:46)
[2020-01-29] MEDS: THIAMINE HCL 100 MG TABLET (FP) PO SCH (22:33)
[2020-01-29] MEDS: MELATONIN 5 MG TABLETS PO SCH (22:34)
[2020-01-30] MEDS ORDERED: LORazepam 1 MG TABLET ONE ×3 (04:36→10:19)
[2020-01-30] MEDS ORDERED: LORazepam 1 MG TABLET PO SCH (05:00)
[2020-01-30] MEDS ORDERED: amLODIPine BESYLATE 10 MG TABLET (FP) ONE (08:51)
--- NOTE | 2020-01-30 09:03 | PN ---
S CIWA - CIWA Score Nausea/Vomitin-Mild Nausea/No Vomiting Muscle Tremors: 2 Anxiety: 2 Agitation: 2 Paroxysmal Sweats: No Perspiration Orientation: 0-Oriented Tacttile Disturbances: 1-Very Mild Itch/Numbness Auditory Disturbances: 0-None Visual Disturbances: 0-None Headache: 1-Very Mild CIWA-Ar Total Score: 9 S Progress Note (SOAP) Subjective: alert,irritable,anxious,interrupted sleep,aching pain,nausea,ambulation with cane Objective: 01/30/20 13:06 Vital Signs Temperature 98.6 F 01/30/20 09:09 Pulse Rate 78 01/30/20 09:09 Respiratory Rate 18 01/30/20 09:09 Blood Pressure 116/76 01/30/20 09:09 O2 Sat by Pulse Oximetry (%) 100 01/30/20 06:30 01/30/20 13:06 Laboratory Last Values WBC 4.8 K/mm3 (4.0-10.0) 01/29/20 07:50 RBC 3.63 M/mm3 (4.00-5.60) L 01/29/20 07:50 Hgb 12.5 GM/dL (11.7-16.9) 01/29/20 07:50 Hct 36.9 % (35.4-49) 01/29/20 07:50 MCV 101.7 fl (80-96) H 01/29/20 07:50 MCH 34.4 pg (25.7-33.7) H 01/29/20 07:50 MCHC 33.9 g/dl (32.0-35.9) 01/29/20 07:50 RDW 14.4 % (11.9-15.9) D 01/29/20 07:50 Plt Count 236 K/MM3 (134-434) D 01/29/20 07:50 MPV 8.9 fl (7.5-11.1) 01/29/20 07:50 Sodium 140 mmol/L (136-145) 01/29/20 07:50 Potassium 3.7 mmol/L (3.5-5.1) 01/29/20 07:50 Chloride 105 mmol/L (98-107) 01/29/20 07:50 Carbon Dioxide 30 mmol/L (21-32) 01/29/20 07:50 Anion Gap 5 MMOL/L (8-16) L 01/29/20 07:50 BUN 13.6 mg/dL (7-18) 01/29/20 07:50 Creatinine 1.0 mg/dL (0.55-1.3) 01/29/20 07:50 Est GFR (CKD-EPI)AfAm 93.08 01/29/20 07:50 Est GFR (CKD-EPI)NonAf 80.31 01/29/20 07:50 Random Glucose 91 mg/dL (74-106) 01/29/20 07:50 Calcium 8.8 mg/dL (8.5-10.1) 01/29/20 07:50 Total Bilirubin 1.0 mg/dL (0.2-1) 01/29/20 07:50 AST 39 U/L (15-37) H 01/29/20 07:50 ALT 62 U/L (13-61) H 01/29/20 07:50 Alkaline Phosphatase 70 U/L (45-117) 01/29/20 07:50 Total Protein 6.5 g/dl (6.4-8.2) 01/29/20 07:50 Albumin 3.5 g/dl (3.4-5.0) 01/29/20 07:50 Syphilis Serology Non-reactive (NONREACTIVE) 01/29/20 07:50 HIV Ag/Ab Combo Qual Negative (NEGATIVE) 01/29/20 07:50 Assessment: 01/30/20 13:07 withdrawal symptom 01/30/20 13:07 continue detox ativan regimen Plan: continue detox ativan regimen
[2020-01-30] MEDS ORDERED: LORazepam 1 MG TABLET PO PRN (09:09)
[2020-01-30] MEDS: PRENATAL VITAMINS W/ FOLIC ACID TABLET (FP) PO SCH (10:17)
[2020-01-30] MEDS: amLODIPine BESYLATE 10 MG TABLET (FP) PO SCH (10:18)
[2020-01-30] MEDS: NICOTINE 21 MG/24 HOURS TOPICAL PATCH TD SCH (10:18)
[2020-01-30] MEDS: LORazepam 1 MG TABLET PO SCH ×3 (10:20→22:12)
[2020-01-30] MEDS ORDERED: FLU VACCINE (FLULAVAL) PF 60 MCG/0.5 ML SYRINGE 2020-2021 IM ONE (10:36)
[2020-01-30] MEDS ORDERED: PNEUMOCOCCAL 23 VACCINE 0.5 ML VIAL IM ONE (12:00)
--- NOTE | 2020-01-30 17:11 | EKG ---
Test Reason : Blood Pressure : / mmHG Vent. Rate : 082 BPM Atrial Rate : 082 BPM P-R Int : 204 ms QRS Dur : 082 ms QT Int : 376 ms P-R-T Axes : 083 014 052 degrees QTc Int : 439 ms NORMAL SINUS RHYTHM NORMAL ECG NO PREVIOUS ECGS AVAILABLE Confirmed by RUBINA ARBOLEDA MD ([id number]) on 01/30/2020 5:11:05 PM Referred By: Confirmed By:RUBINA ARBOLEDA MD
[2020-01-30] MEDS: THIAMINE HCL 100 MG TABLET (FP) PO SCH (22:12)
[2020-01-30] MEDS: MELATONIN 5 MG TABLETS PO SCH (22:12)
[2020-01-31] MEDS ORDERED: LORazepam 0.5 MG TABLET PO PRN
[2020-01-31] MEDS: LORazepam 0.5 MG TABLET PO SCH ×4 (07:45→22:06)
--- NOTE | 2020-01-31 09:44 | PN ---
S CIWA - CIWA Score Nausea/Vomitin-No Nausea/No Vomiting Muscle Tremors: 2 Anxiety: 2 Agitation: 1-Slight > Activity Paroxysmal Sweats: No Perspiration Orientation: 0-Oriented Tacttile Disturbances: 0-None Auditory Disturbances: 0-None Visual Disturbances: 0-None Headache: 2-Mild CIWA-Ar Total Score: 7 BHS Progress Note (SOAP) Subjective: alert,irritable,anxious,interrupted sleep,aching pain Objective: 01/31/20 10:49 Vital Signs Temperature 97.2 F L 01/31/20 09:13 Pulse Rate 77 01/31/20 09:13 Respiratory Rate 18 01/31/20 09:13 Blood Pressure 151/95 01/31/20 09:13 O2 Sat by Pulse Oximetry (%) 98 01/31/20 06:18 Assessment: 01/31/20 10:50 withdrawal symptom Plan: continue detox ativan regimen,discharge in am
[2020-01-31] MEDS: NICOTINE 21 MG/24 HOURS TOPICAL PATCH TD SCH (10:09)
[2020-01-31] MEDS: PRENATAL VITAMINS W/ FOLIC ACID TABLET (FP) PO SCH (10:10)
[2020-01-31] MEDS: amLODIPine BESYLATE 10 MG TABLET (FP) PO SCH (10:10)
[2020-01-31] MEDS ORDERED: FLU VACCINE (FLULAVAL) PF 60 MCG/0.5 ML SYRINGE 2020-2021 IM ONE (11:30)
[2020-01-31 18:12] LABS: URINE APPEARANCE CLEAR; URINE BILIRUBIN NEGATIVE (NEGATIVE); URINE COLOR YELLOW; URINE GLUCOSE (UA) NEGATIVE (NEGATIVE); URINE KETONE NEGATIVE (NEGATIVE); URINE LEUK ESTERASE NEGATIVE (NEGATIVE); URINE NITRITE NEGATIVE (NEGATIVE); URINE PROTEIN NEGATIVE (NEGATIVE)
[2020-01-31] MEDS: MELATONIN 5 MG TABLETS PO SCH (22:06)
[2020-01-31] MEDS: THIAMINE HCL 100 MG TABLET (FP) PO SCH (22:06)
[2020-02-01] MEDS ORDERED: LORazepam 0.5 MG TABLET PO ONE (05:00)
[2020-02-01 06:28] VITALS: BP 165/96; PULSE 72; TEMP 97.1
--- NOTE | 2020-02-01 07:53 | PN ---
[facility] CIWA - CIWA Score Nausea/Vomitin-No Nausea/No Vomiting Muscle Tremors: None Anxiety: 1-Mildly Anxious Agitation: 0-Normal Activity Paroxysmal Sweats: No Perspiration Orientation: 0-Oriented Tacttile Disturbances: 0-None Auditory Disturbances: 0-None Visual Disturbances: 0-None Headache: 0-None Present CIWA-Ar Total Score: 1 S Progress Note (SOAP) Subjective: alert,no complaint Objective: 02/01/20 13:17 Vital Signs Temperature 97.1 F L 02/01/20 06:28 Pulse Rate 72 02/01/20 06:28 Respiratory Rate 18 02/01/20 06:28 Blood Pressure 165/96 02/01/20 06:28 O2 Sat by Pulse Oximetry (%) 98 02/01/20 06:28 Assessment: 02/01/20 13:17 detox completed,no withdrawal symptom Plan: stable for discharge today,declined rehab,follow up with outpatient program and medical provider at [facility] as arrangement
--- NOTE | 2020-02-01 07:53 | DS ---
[facility] Detox Discharge Summary Admission Date: 01/28/20 Discharge Date: 02/01/20 - History Present History: Alcohol Dependence, Cannabis Dependence Additional Comments: alert,oriented x 3 ambulation on the unit with cane lung clear on auscultation bilaterally abdomen soft,no distension,no pain no edema of legs detox completed,no withdrawal symptom stable for discharge today declined rehab follow up with after care program as arrangement [facility] follow up with Medical Provider at [facility] for medical issue left the unit in stable condition total time of discharge 35 minutes Pertinent Past History: essential hypertension arthritis right knee pain ambulation with cane history of fall - Physical Exam Results Vital Signs: Vital Signs Temperature 97.1 F L 02/01/20 06:28 Pulse Rate 72 02/01/20 06:28 Respiratory Rate 18 02/01/20 06:28 Blood Pressure 165/96 02/01/20 06:28 O2 Sat by Pulse Oximetry (%) 98 02/01/20 06:28 Pertinent Admission Physical Exam Findings: withdrawal signs and symptom Vital Signs Temperature 97.1 F L 02/01/20 06:28 Pulse Rate 72 02/01/20 06:28 Respiratory Rate 18 02/01/20 06:28 Blood Pressure 165/96 02/01/20 06:28 O2 Sat by Pulse Oximetry (%) 98 02/01/20 06:28 Laboratory Last Values WBC 4.8 K/mm3 (4.0-10.0) 01/29/20 07:50 RBC 3.63 M/mm3 (4.00-5.60) L 01/29/20 07:50 Hgb 12.5 GM/dL (11.7-16.9) 01/29/20 07:50 Hct 36.9 % (35.4-49) 01/29/20 07:50 MCV 101.7 fl (80-96) H 01/29/20 07:50 MCH 34.4 pg (25.7-33.7) H 01/29/20 07:50 MCHC 33.9 g/dl (32.0-35.9) 01/29/20 07:50 RDW 14.4 % (11.9-15.9) D 01/29/20 07:50 Plt Count 236 K/MM3 (134-434) D 01/29/20 07:50 MPV 8.9 fl (7.5-11.1) 01/29/20 07:50 Sodium 140 mmol/L (136-145) 01/29/20 07:50 Potassium 3.7 mmol/L (3.5-5.1) 01/29/20 07:50 Chloride 105 mmol/L (98-107) 01/29/20 07:50 Carbon Dioxide 30 mmol/L (21-32) 01/29/20 07:50 Anion Gap 5 MMOL/L (8-16) L 01/29/20 07:50 BUN 13.6 mg/dL (7-18) 01/29/20 07:50 Creatinine 1.0 mg/dL (0.55-1.3) 01/29/20 07:50 Est GFR (CKD-EPI)AfAm 93.08 01/29/20 07:50 Est GFR (CKD-EPI)NonAf 80.31 01/29/20 07:50 Random Glucose 91 mg/dL (74-106) 01/29/20 07:50 Calcium 8.8 mg/dL (8.5-10.1) 01/29/20 07:50 Total Bilirubin 1.0 mg/dL (0.2-1) 01/29/20 07:50 AST 39 U/L (15-37) H 01/29/20 07:50 ALT 62 U/L (13-61) H 01/29/20 07:50 Alkaline Phosphatase 70 U/L (45-117) 01/29/20 07:50 Total Protein 6.5 g/dl (6.4-8.2) 01/29/20 07:50 Albumin 3.5 g/dl (3.4-5.0) 01/29/20 07:50 Urine Color Yellow 01/31/20 15:20 Urine Appearance Clear 01/31/20 15:20 Urine pH 8.0 (5.0-8.0) 01/31/20 15:20 Ur Specific [place] 1.022 (1.010-1.035) 01/31/20 15:20 Urine Protein Negative (NEGATIVE) 01/31/20 15:20 Urine Glucose (UA) Negative (NEGATIVE) 01/31/20 15:20 Urine Ketones Negative (NEGATIVE) 01/31/20 15:20 Urine Blood Negative (NEGATIVE) 01/31/20 15:20 Urine Nitrite Negative (NEGATIVE) 01/31/20 15:20 Urine Bilirubin Negative (NEGATIVE) 01/31/20 15:20 Urine Urobilinogen 1.0 mg/dL (0.2-1.0) 01/31/20 15:20 Ur Leukocyte Esterase Negative (NEGATIVE) 01/31/20 15:20 Syphilis Serology Non-reactive (NONREACTIVE) 01/29/20 07:50 COVID-19 (SINDI) Not detected (Not Detected) 01/29/20 08:55 HIV Ag/Ab Combo Qual Negative (NEGATIVE) 01/29/20 07:50 - Treatment Hospital Course: Detox Protocol Followed, Detoxed Safely, Responded well, Discharged Condition Good Patient has Accepted a Rehab Referral to: declined - Medication Discharge Medications: Ambulatory Orders Amlodipine Besylate [Norvasc -] 10 mg PO DAILY 10/28/19 - Diagnosis (1) Alcohol dependence with withdrawal, uncomplicated Status: Acute (2) Cannabis use disorder, mild, abuse Status: Acute (3) Ambulates with cane Status: Chronic (4) Hypertension Status: Chronic Qualifiers: Hypertension type: essential hypertension Qualified Code(s): I10 - Essential (primary) hypertension (5) Nicotine dependence Status: Chronic Qualifiers: Nicotine product type: cigarettes Substance use status: in withdrawal Qualified Code(s): F17.213 - Nicotine dependence, cigarettes, with withdrawal (6) Risk for falls Status: Chronic
== END 2020-02-01 09:01 | disposition home or self-care (01) | DRG 897 ==
LOC: YASAS 20:50 → Y3N 23:21
PROVIDERS: ADMIT Allergy & Immunology; ATTEND Allergy & Immunology
PROC: HZ2ZZZZ Detoxification Services for Substance Abuse Treatment (ICD-10-PCS; principal; 2020-01-28)
DX: F10.230 Alcohol dependence with withdrawal, uncomplicated (principal); F12.10 Cannabis abuse, uncomplicated; F17.210 Nicotine dependence, cigarettes, uncomplicated; I10 Essential (primary) hypertension; M17.11 Unilateral primary osteoarthritis, right knee; R76.11 Nonspecific reaction to tuberculin skin test without active tuberculosis; Z87.19 Personal history of other diseases of the digestive system; Z91.81 History of falling; Z99.89 Dependence on other enabling machines and devices
CPT/HCPCS: 36415; 80053; 81003; 85027; 86780; 87389; 90732; 93005; 93010; G0009; J0735; Q2036; U0003

== ENCOUNTER 2020-11-13 12:23 | Inpatient (IN) | payer OTHER ==
[2020-11-13 15:25] VITALS: BMI 23.6
[2020-11-13] MEDS ORDERED: MENTHOL/PHENOL 1 EACH UD MM PRN (15:59)
[2020-11-13] MEDS ORDERED: LORazepam 1 MG TABLET PO PRN (15:59)
[2020-11-13] MEDS ORDERED: ACETAMINOPHEN 325 MG TABLET (FP) PO PRN ×3 (15:59→17:46)
[2020-11-13] MEDS ORDERED: NICOTINE POLACRILEX 2 MG GUM BUC PRN (15:59)
[2020-11-13] MEDS ORDERED: BISMUTH SUBSALICYLATE 524 MG/30 ML PO PRN (15:59)
[2020-11-13] MEDS ORDERED: MAGNESIUM HYDROX 2400MG/30ML ORAL SUSPENSION 30 ML CUP PO PRN (15:59)
[2020-11-13] MEDS ORDERED: MAGNESIUM CITRATE 300 ML BOTTLE PO PRN (15:59)
[2020-11-13] MEDS ORDERED: MAG HYDROX/AL HYDROX/SIMETH 30 ML UNIT-DOSE CUP PO PRN (15:59)
[2020-11-13] MEDS ORDERED: METHOCARBAMOL 500 MG TABLET PO PRN (15:59)
[2020-11-13] MEDS ORDERED: ONDANSETRON *ODT* 4 MG TABLET SL PRN (15:59)
[2020-11-13] MEDS ORDERED: IBUPROFEN 400 MG TABLET (FP) PO PRN ×2 (15:59→17:46)
[2020-11-13] MEDS: LORazepam 2 MG TABLET PO SCH ×2 (18:20→22:18)
[2020-11-13] MEDS: amLODIPine BESYLATE 10 MG TABLET (FP) PO SCH (18:20)
[2020-11-13] MEDS: hydrOXYzine PAMOATE 25 MG CAPSULE (FP) PO SCH ×2 (18:20→22:17)
[2020-11-13] MEDS: NICOTINE 21 MG/24 HOURS TOPICAL PATCH TD SCH (18:23)
[2020-11-13] MEDS: MELATONIN 5 MG TABLETS PO SCH (22:17)
[2020-11-13] MEDS: THIAMINE HCL 100 MG TABLET (FP) PO SCH (22:17)
[2020-11-13] MEDS: ATORVASTATIN CA 40 MG TABLET (FP) PO SCH (22:17)
[2020-11-13] MEDS: ASPIRIN 325 MG TABLET PO SCH (23:32)
[2020-11-14] MEDS: hydrOXYzine PAMOATE 25 MG CAPSULE (FP) PO SCH ×2 (06:53→10:35)
[2020-11-14] MEDS: LORazepam 2 MG TABLET PO SCH ×4 (06:53→22:17)
[2020-11-14 10:22] LABS: HEMATOCRIT 36.5 % (35.4-49); HEMOGLOBIN 12.3 GM/dL (11.7-16.9); MCH 34.4 pg (25.7-33.7); MCHC 33.8 g/dl (32.0-35.9); MEAN CELL VOLUME 101.8 fl (80-96); MEAN PLT VOLUME 8.8 fl (7.5-11.1); PLATELET COUNT 275 10^3/uL (134-434); RBC 3.58 M/mm3 (4.00-5.60); RDW 15.2 % (11.9-15.9); WHITE BLOOD COUNT 3.4 K/mm3 (4.0-10.0)
[2020-11-14 10:31] LABS: BLOOD UREA NITROGEN 11.6 mg/dL (7-18); CALCIUM 8.9 mg/dL (8.5-10.1)
[2020-11-14 10:33] LABS: ALBUMIN 3.2 g/dl (3.4-5.0)
[2020-11-14] MEDS: ASPIRIN 325 MG TABLET PO SCH ×2 (10:35→22:18)
[2020-11-14] MEDS: NICOTINE 21 MG/24 HOURS TOPICAL PATCH TD SCH (10:35)
[2020-11-14] MEDS: PRENATAL VITAMINS W/ FOLIC ACID TABLET (FP) PO SCH (10:35)
[2020-11-14] MEDS: amLODIPine BESYLATE 10 MG TABLET (FP) PO SCH (10:35)
[2020-11-14 10:36] LABS: CREATININE 0.9 mg/dL (0.55-1.3)
[2020-11-14 10:37] LABS: BILIRUBIN,TOTAL 1.4 mg/dL (0.2-1); TOT PROT 6.2 g/dl (6.4-8.2)
[2020-11-14] MEDS ORDERED: COVID-19 VAC,AD26(JANSSEN)/PF 0.5 ML IM ONE (11:00)
[2020-11-14] MEDS: ATORVASTATIN CA 40 MG TABLET (FP) PO SCH (22:17)
[2020-11-14] MEDS: THIAMINE HCL 100 MG TABLET (FP) PO SCH (22:17)
[2020-11-14] MEDS: MELATONIN 5 MG TABLETS PO SCH (22:18)
[2020-11-15] MEDS: LORazepam 1 MG TABLET PO SCH ×4 (05:38→22:10)
[2020-11-15] MEDS: amLODIPine BESYLATE 10 MG TABLET (FP) PO SCH (10:34)
[2020-11-15] MEDS: ASPIRIN 325 MG TABLET PO SCH ×2 (10:34→22:11)
[2020-11-15] MEDS: NICOTINE 21 MG/24 HOURS TOPICAL PATCH TD SCH (10:34)
[2020-11-15] MEDS: PRENATAL VITAMINS W/ FOLIC ACID TABLET (FP) PO SCH (10:34)
[2020-11-15] MEDS: ATORVASTATIN CA 40 MG TABLET (FP) PO SCH (22:10)
[2020-11-15] MEDS: THIAMINE HCL 100 MG TABLET (FP) PO SCH (22:10)
[2020-11-15] MEDS: MELATONIN 5 MG TABLETS PO SCH (22:11)
[2020-11-16] MEDS ORDERED: LORazepam 0.5 MG TABLET PO PRN
[2020-11-16] MEDS: LORazepam 0.5 MG TABLET PO SCH ×4 (05:38→22:36)
[2020-11-16] MEDS: amLODIPine BESYLATE 10 MG TABLET (FP) PO SCH (10:24)
[2020-11-16] MEDS: PRENATAL VITAMINS W/ FOLIC ACID TABLET (FP) PO SCH (10:24)
[2020-11-16] MEDS: ASPIRIN 325 MG TABLET PO SCH ×2 (10:24→23:12)
[2020-11-16] MEDS: hydrOXYzine PAMOATE 25 MG CAPSULE (FP) PO PRN (10:24)
[2020-11-16] MEDS: NICOTINE 21 MG/24 HOURS TOPICAL PATCH TD SCH (10:26)
[2020-11-16] MEDS: THIAMINE HCL 100 MG TABLET (FP) PO SCH (22:37)
[2020-11-16] MEDS: ATORVASTATIN CA 40 MG TABLET (FP) PO SCH (22:37)
[2020-11-16] MEDS: MELATONIN 5 MG TABLETS PO SCH (23:11)
[2020-11-17] MEDS ORDERED: LORazepam 0.5 MG TABLET PO ONE (05:00)
[2020-11-17] MEDS: hydrOXYzine PAMOATE 25 MG CAPSULE (FP) PO PRN (05:37)
[2020-11-17] MEDS ORDERED: cloNIDine HCL 0.1 MG TABLET PO ONE (06:23)
[2020-11-17] MEDS: amLODIPine BESYLATE 10 MG TABLET (FP) PO SCH (09:22)
[2020-11-17] MEDS: ASPIRIN 325 MG TABLET PO SCH (09:22)
[2020-11-17] MEDS: PRENATAL VITAMINS W/ FOLIC ACID TABLET (FP) PO SCH (09:22)
[2020-11-17] MEDS: NICOTINE 21 MG/24 HOURS TOPICAL PATCH TD SCH (09:23)
[2020-11-17 10:07] VITALS: BP 156/113; PULSE 79; TEMP 97.8
== END 2020-11-17 09:28 | disposition home or self-care (01) | DRG 897 ==
LOC: YASAS 12:23 → Y3N 17:05
PROVIDERS: ADMIT Allergy & Immunology; ATTEND Allergy & Immunology
PROC: HZ2ZZZZ Detoxification Services for Substance Abuse Treatment (ICD-10-PCS; principal; 2020-11-13)
DX: F10.230 Alcohol dependence with withdrawal, uncomplicated (principal); F17.210 Nicotine dependence, cigarettes, uncomplicated; F20.9 Schizophrenia, unspecified; F31.9 Bipolar disorder, unspecified; E78.5 Hyperlipidemia, unspecified; I10 Essential (primary) hypertension; J45.909 Unspecified asthma, uncomplicated; M54.5 Low back pain; G89.29 Other chronic pain; Z96.641 Presence of right artificial hip joint; Z91.81 History of falling
CPT/HCPCS: 36415; 71046-TC-FY; 80053; 85027; 86780; C9803; J0735; U0003; U0005